=== PATIENT | female | born 1995 | race Two or more races ===

== ENCOUNTER 2016-08-15 19:34 | Emergency (ER) | payer BC ==
[2016-08-15 20:28] VITALS: BP 103/63
--- NOTE | 2016-08-15 21:47 | UC ---
Lower Extremity/Ankle HPI - HPI Summary HPI Summary: SUDDEN ONSET OF NUMBNESS LEFT GREAT TOE TODAY AT 3:40PM. NO TRAUMA. NO UNUSUAL ACTIVITY. NO NEW SHOES. HAS H/O ISCHEMIC STROKES 09/2013 AND 10/2013. PT IS CONCERNED THOSE ALSO STARTED WITH PARESTHESIAS IN AN EXTREMITY ALONG WITH A COLE. PT DENIES COLE NOW. NO DIZZINESS, SOB OR CP. NO GAIT DISTURBANCE. - History of Current Complaint Chief Complaint: UCLowerExtremity Stated Complaint: BIG TOE NUMB HX OF STROKE Time Seen by Provider: 08/15/16 21:20 Hx Obtained From: Patient Hx Last Menstrual Period: 07/31/16 Onset/Duration: Sudden Onset, Lasting Hours, Still Present Severity Initially: Mild Severity Currently: Mild Pain Intensity: 0 Pain Scale Used: 0-10 Numeric Aggravating Factor(s): Nothing Alleviating Factor(s): Nothing - Allergies/Home Medications Allergies/Adverse Reactions: Allergies Allergy/AdvReac Type Severity Reaction Status Date / Time Peanut-containing Drug Allergy Swelling Verified 06/20/16 08:33 Products Of Face,Lips,& Throat Tree Nuts Allergy Anaphylatic Verified 06/20/16 08:33 Shock Cats Allergy Hives Uncoded 08/15/16 20:28 LEGUMES AdvReac Swelling Uncoded 06/20/16 08:33 Of Face,Lips,& Throat LENTILS AdvReac Swelling Uncoded 06/20/16 08:33 Of Face,Lips,& Throat Home Medications: Home Medications Aspirin [Aspirin 81 MG TAB] 1 tab PO DAILY 08/15/16 [History] Modafinil TAB* [Provigil TAB*] 200 mg PO DAILY 08/15/16 [History Confirmed 08/15] Topiramate TAB(*) [Topamax 25 MG tab] 50 mg PO BID 08/15/16 [History Confirmed 08/15/16] PMH/Surg Hx/FS Hx/Imm Hx Endocrine History Of: Denies: Diabetes, Thyroid Disease Cardiovascular History Of: Denies: Cardiac Disorders, Hypertension, Pacemaker/ICD Respiratory History Of: Reports: Asthma Denies: COPD GI/ History Of: Denies: Ulcer - Surgical History Surgical History: None - Family History Known Family History: Positive: Hypertension - Social History Alcohol Use: Rare Substance Use Type: None Smoking Status (MU): Never Smoked Tobacco - Immunization History Most Recent Influenza Vaccination: season Review of Systems Constitutional: Negative Skin: Negative Respiratory: Negative Cardiovascular: Negative Gastrointestinal: Negative Musculoskeletal: Negative Neurological: Paresthesia All Other Systems Reviewed And Are Negative: Yes Physical Exam Triage Information Reviewed: Yes Appearance: Well-Appearing, No Pain Distress, Well-Nourished Vital Signs: Initial Vital Signs Temp 98.7 F 08/15/16 20:21 Pulse 96 08/15/16 20:21 Resp 18 08/15/16 20:21 BP 103/63 08/15/16 20:21 Pulse Ox 100 08/15/16 20:21 Vital Signs Reviewed: Yes Eyes: Positive: Conjunctiva Clear ENT: Positive: Hearing grossly normal Neck: Positive: Supple Respiratory Exam: Normal Cardiovascular Exam: Normal Abdomen Description: Positive: Soft Musculoskeletal: Positive: No Edema Neurological: Positive: Alert, Other: - CN II-XII GROSSLY INTACT BILATERALLY. NEG PRONATOR DRIFT. FINGER TO NOSE INTACT BILATERALLY. HEEL TO PINO INTACT BILATERALLY. RAPID ALTERNATING MVMTS INTACT. 5/5 STRENGTH. UNABLE TO RELIABLY DISTINGUICH SHARP/DULL ON PLANTAR SURFACE OF TOES 1-4 LEFT FOOT Psychological: Positive: Age Appropriate Behavior Skin: Negative: rashes Lower Extremity Course/Dx - Differential Dx/Diagnosis Provider Diagnoses: PARESTHESIAS LEFT GREAT TOE Discharge - Discharge Plan Condition: Stable Disposition: HOME Patient Education Materials: Paresthesia (ED) Referrals: Velvet Jones MD [Medical Doctor] - 2 Days Additional Instructions: UNCLEAR ETIOLOGY OF YOUR SYMPTOMS. FOLLOW-UP WITH YOUR NEUROLOGIST IN THE NEXT 1 -2 DAYS FOR FURTHER EVALUATION. GO TO THE ER WITHOUT FAIL IF YOU DEVELOP VISUAL DISTURBANCE, GAIT INSTABILITY, SPEECH DIFFICULTY, NAUSEA/VOMITING, HEADACHE, DIZZINESS, CONFUSION, WEAKNESS, WORSENING PARESTHESIAS OR ANY OTHER CONCERNING SYMPTOMS
== END 2016-08-15 21:48 | disposition home or self-care (01) ==
LOC: UCEAST 19:34
DX: R20.2 Paresthesia of skin (principal); J45.909 Unspecified asthma, uncomplicated
CPT/HCPCS: 99211; G0463